=== PATIENT | male | born 1965 | race Caucasian/White ===

== ENCOUNTER 2021-12-11 19:46 | Observation (INO) | payer OTHER ==
--- NOTE | 2021-12-11 20:18 | XR ---
EXAMINATION TYPE: XR KUB DATE OF EXAM: 12/11/2021 COMPARISON: NONE HISTORY: Abdominal pain TECHNIQUE: Oral view FINDINGS: Upright view shows no evidence of intestinal obstruction or pneumoperitoneum. Fecal pattern is normal. Lung bases are clear. There are no pathologic calcifications over the kidneys. There is a mild lumbar levoscoliosis. IMPRESSION: Nonacute abdomen.
[2021-12-11 21:00] LABS: Appearance,Urine Clear (Clear); Bilirubin,Urine Negative (Negative); Blood,Urine Moderate (Negative); Color,Urine Yellow; Glucose,Urine (UA) Negative (Negative); Hyaline Casts,Urine 10 /lpf (0-2); Ketones,Urine Negative (Negative); Leukocyte Esterase,Urine Small (Negative); Mucus,Urine Rare /hpf; Nitrite,Urine Negative (Negative); PH, Urine 5.5 (5.0-8.0); Protein,Urine 1+ (Negative); RBC,Urine 32 /hpf (0-5); Specific Gravity,Urine 1.028 (1.001-1.035); Squamous Epithelial Cell,Urine <1 /hpf (0-4); Urobilinogen,Urine <2.0 mg/dL (<2.0); WBC,Urine 8 /hpf (0-5)
[2021-12-11] MEDS ORDERED: ONDANSETRON 4 MG/2 ML VIAL IVP STA (21:56)
[2021-12-11] MEDS ORDERED: MORPHINE SULFATE 4 MG/ML SYRINGE IV STA (21:56)
[2021-12-11] MEDS ORDERED: SODIUM CHLORIDE 0.9% 1,000 ML IV STA (21:56)
[2021-12-11 22:45] LABS: Basophils % (A) 0 %; Eosinophils # (A) 0.1 k/uL (0-0.7); Eosinophils % (A) 1 %; HCT 39.7 % (39.0-53.0); HGB 13.6 gm/dL (13.0-17.5); Lymphocytes # (A) 1.4 k/uL (1.0-4.8); Lymphocytes % (A) 11 %; MCHC 34.4 g/dL (31.0-37.0); MCV 95.8 fL (80.0-100.0); Mean Platelet Volume 7.3; Monocytes # (A) 0.3 k/uL (0-1.0); Monocytes % (A) 3 %; Neutrophils # (A) 10.9 k/uL (1.3-7.7); Neutrophils % (A) 84 %; Platelet Count 346 k/uL (150-450); RBC 4.14 m/uL (4.30-5.90); RDW 13.2 % (11.5-15.5)
--- NOTE | 2021-12-11 22:48 | ED ---
Abdominal Pain HPI - General Chief Complaint: Abdominal Pain Stated Complaint: Abdominal Pain Time Seen by Provider: 12/11/21 21:34 Source: patient, family, RN notes reviewed, old records reviewed Mode of arrival: ambulatory Limitations: no limitations - History of Present Illness Initial Comments: This is a 56-year-old male to the emergency department for evaluation. Patient presents today for evaluation regards to abdominal pain more suprapubic and pelvic pain. MD Complaint: abdominal pain -: hour(s) Location: periumbilical, epigastric, suprapubic Radiation: suprapubic Migration to: suprapubic Severity: moderate Severity scale (1-10): 4 Quality: cramping, aching Consistency: constant, intermittent Improves With: nothing Worsens With: nothing Associated Symptoms: nausea Treatments Prior to Arrival: other (none) - Related Data Allergies Allergy/AdvReac Type Severity Reaction Status Date / Time No Known Allergies Allergy Verified 12/11/21 19:56 Review of Systems ROS Statement: Those systems with pertinent positive or pertinent negative responses have been documented in the HPI. ROS Other: All systems not noted in ROS Statement are negative. Past Medical History Past Medical History: No Reported History Additional Past Medical History / Comment(s): Bipolar History of Any Multi-Drug Resistant Organisms: None Reported Past Surgical History: Orthopedic Surgery Past Psychological History: Bipolar Smoking Status: Former smoker Past Alcohol Use History: None Reported Past Drug Use History: None Reported General Exam Limitations: no limitations General appearance: alert, in no apparent distress Head exam: Present: atraumatic, normocephalic, normal inspection Eye exam: Present: normal appearance, PERRL, EOMI. Absent: scleral icterus, conjunctival injection, periorbital swelling ENT exam: Present: normal exam, mucous membranes moist Neck exam: Present: normal inspection. Absent: tenderness, meningismus, lymp hadenopathy Respiratory exam: Present: normal lung sounds bilaterally. Absent: respiratory distress, wheezes, rales, rhonchi, stridor Cardiovascular Exam: Present: regular rate, normal rhythm, normal heart sounds. Absent: systolic murmur, diastolic murmur, rubs, gallop, clicks GI/Abdominal exam: Present: soft, normal bowel sounds. Absent: distended, tenderness, guarding, rebound, rigid Extremities exam: Present: normal inspection, full ROM, normal capillary refill. Absent: tenderness, pedal edema, joint swelling, calf tenderness Back exam: Present: normal inspection Neurological exam: Present: alert, oriented X3, CN II-XII intact Psychiatric exam: Present: normal affect, normal mood Skin exam: Present: warm, dry, intact, normal color. Absent: rash Course Vital Signs 12/11/21 12/11/21 19:50 23:00 Temperature 98.4 F Pulse Rate 111 H 92 Respiratory 22 16 Rate Blood Pressure 123/71 124/68 O2 Sat by Pulse 93 L 94 L Oximetry - Reevaluation(s) Reevaluation #1: 12/11/21 23:25 Medical record is reviewed Reevaluation #2: 12/11/21 23:25 Symptoms are improved here in the ER Reevaluation #3: 12/12/21 02:04 Patient informed results and questions answered - Consultations Consultation #1: spoke with Dr. velasquez who agrees to admit this patient Medical Decision Making - Medical Decision Making 56 male to the emergency department for evaluation. Patient presents today for evaluation of acute abdominal pain. Positive computed tomography scan for acute appendicitis. Patient will be admitted for surgical evaluation and treatment - Lab Data Result diagrams: 12/11/21 22:26 12/11/21 22:26 Lab Results 12/11/21 12/11/21 12/11/21 Range/Units 20:01 22:26 22:26 WBC 13.0 H (3.8-10.6) k/uL RBC 4.14 L (4.30-5.90) m/uL Hgb 13.6 (13.0-17.5) gm/dL Hct 39.7 (39.0-53.0) % MCV 95.8 (80.0-100.0) fL MCH 33.0 (25.0-35.0) pg MCHC 34.4 (31.0-37.0) g/dL RDW 13.2 (11.5-15.5) % Plt Count 346 (150-450) k/uL MPV 7.3 Neutrophils % 84 % Lymphocytes % 11 % Monocytes % 3 % Eosinophils % 1 % Basophils % 0 % Neutrophils # 10.9 H (1.3-7.7) k/uL Lymphocytes # 1.4 (1.0-4.8) k/uL Monocytes # 0.3 (0-1.0) k/uL Eosinophils # 0.1 (0-0.7) k/uL Basophils # 0.0 (0-0.2) k/uL Sodium 131 L (137-145) mmol/L Potassium 4.5 (3.5-5.1) mmol/L Chloride 92 L (98-107) mmol/L Carbon Dioxide 28 (22-30) mmol/L Anion Gap 11 mmol/L BUN 17 (9-20) mg/dL Creatinine 0.96 (0.66-1.25) mg/dL Est GFR (CKD-EPI)AfAm >90 (>60 ml/min/1.73 sqM) Est GFR (CKD-EPI)NonAf 87 (>60 ml/min/1.73 sqM) Glucose 120 H (74-99) mg/dL Plasma Lactic Acid [place] (0.7-2.0) mmol/L Calcium 9.3 (8.4-10.2) mg/dL Total Bilirubin 1.0 (0.2-1.3) mg/dL AST 26 (17-59) U/L ALT 17 (4-49) U/L Alkaline Phosphatase 94 (38-126) U/L Total Protein 7.4 (6.3-8.2) g/dL Albumin 4.5 (3.5-5.0) g/dL Amylase 49 (30-110) U/L Lipase 32 (23-300) U/L Urine Color Yellow Urine Appearance Clear (Clear) Urine pH 5.5 (5.0-8.0) Ur Specific [place] 1.028 (1.001-1.035) Urine Protein 1+ H (Negative) Urine Glucose (UA) Negative (Negative) Urine Ketones Negative (Negative) Urine Blood Moderate H (Negative) Urine Nitrite Negative (Negative) Urine Bilirubin Negative (Negative) Urine Urobilinogen <2.0 (<2.0) mg/dL Ur Leukocyte Esterase Small H (Negative) Urine RBC 32 H (0-5) /hpf Urine WBC 8 H (0-5) /hpf Ur Squamous Epith Cells <1 (0-4) /hpf Hyaline Casts 10 H (0-2) /lpf Urine Mucus Rare H (None) /hpf 12/11/21 Range/Units 22:26 WBC (3.8-10.6) k/uL RBC (4.30-5.90) m/uL Hgb (13.0-17.5) gm/dL Hct (39.0-53.0) % MCV (80.0-100.0) fL MCH (25.0-35.0) pg MCHC (31.0-37.0) g/dL RDW (11.5-15.5) % Plt Count (150-450) k/uL MPV Neutrophils % % Lymphocytes % % Monocytes % % Eosinophils % % Basophils % % Neutrophils # (1.3-7.7) k/uL Lymphocytes # (1.0-4.8) k/uL Monocytes # (0-1.0) k/uL Eosinophils # (0-0.7) k/uL Basophils # (0-0.2) k/uL Sodium (137-145) mmol/L Potassium (3.5-5.1) mmol/L Chloride (98-107) mmol/L Carbon Dioxide (22-30) mmol/L Anion Gap mmol/L BUN (9-20) mg/dL Creatinine (0.66-1.25) mg/dL Est GFR (CKD-EPI)AfAm (>60 ml/min/1.73 sqM) Est GFR (CKD-EPI)NonAf (>60 ml/min/1.73 sqM) Glucose (74-99) mg/dL Plasma Lactic Acid [place] 1.5 (0.7-2.0) mmol/L Calcium (8.4-10.2) mg/dL Total Bilirubin (0.2-1.3) mg/dL AST (17-59) U/L ALT (4-49) U/L Alkaline Phosphatase (38-126) U/L Total Protein (6.3-8.2) g/dL Albumin (3.5-5.0) g/dL Amylase (30-110) U/L Lipase (23-300) U/L Urine Color Urine Appearance (Clear) Urine pH (5.0-8.0) Ur Specific [place] (1.001-1.035) Urine Protein (Negative) Urine Glucose (UA) (Negative) Urine Ketones (Negative) Urine Blood (Negative) Urine Nitrite (Negative) Urine Bilirubin (Negative) Urine Urobilinogen (<2.0) mg/dL Ur Leukocyte Esterase (Negative) Urine RBC (0-5) /hpf Urine WBC (0-5) /hpf Ur Squamous Epith Cells (0-4) /hpf Hyaline Casts (0-2) /lpf Urine Mucus (None) /hpf - Radiology Data Radiology results: report reviewed (CT of the abdomen and pelvis is positive for acute appendicitis), image reviewed Disposition Clinical Impression: Abdominal pain, Acute appendicitis Disposition: ADMITTED IP TO THIS [facility] Condition: Good Is patient prescribed a controlled substance at d/c from ED?: No Referrals: Jeffrey Ann MD [Primary Care Provider] - 1-2 days
[2021-12-11 22:57] LABS: ALT 17 U/L (4-49); AST 26 U/L (17-59); African American GFR (CKD) >90 (>60 ml/min/1.73 sqM); Albumin 4.5 g/dL (3.5-5.0); Alkaline Phosphatase 94 U/L (38-126); Amylase 49 U/L (30-110); Anion Gap 11 mmol/L; Blood Urea Nitrogen 17 mg/dL (9-20); Calcium 9.3 mg/dL (8.4-10.2); Carbon Dioxide 28 mmol/L (22-30); Chloride 92 mmol/L (98-107); Glucose 120 mg/dL (74-99); Lipase 32 U/L (23-300); Non-African American GFR(CKD) 87 (>60 ml/min/1.73 sqM); Potassium 4.5 mmol/L (3.5-5.1); Sodium 131 mmol/L (137-145); Total Protein 7.4 g/dL (6.3-8.2)
--- NOTE | 2021-12-12 01:11 | CT ---
EXAMINATION TYPE: CT abdomen pelvis w con DATE OF EXAM: 12/11/2021 COMPARISON: None HISTORY: Abd Pain CT DLP: 621.6 mGycm Automated exposure control for dose reduction was used. CONTRAST: Performed with IV Contrast, patient injected with 100 mL of Isovue 300. Images obtained from the diaphragm to the floor the pelvis with IV contrast. FINDINGS: Lung bases are clear. There is no pleural effusion. Heart size is normal. There is no pericardial eff usion. Liver spleen stomach pancreas appear intact. Bile ducts are not dilated. Gallbladder is borderline d ilated and measures 4.9 cm. There is no gallbladder wall thickening. No pericholecystic fluid. There is no adrenal mass. Kidneys show satisfactory contrast opacification. There is no hydronephrosi s. Ureters are not dilated. There is no retroperitoneal adenopathy. Abdominal aorta is atheromatous. Bladder distends smoothly. There is no inguinal hernia. No free fluid in the pelvis. There are some m ild fat stranding in the mesentery of the lower abdomen. There is blind ending tubular structure in t he right lower quadrant that appears to be dilated appendix and measures 1.5 cm in diameter. The tip is near the sacral promontory. This appears to account for the fat stranding in the lower abdomen. Th ere is some mild distention of the right colon with fluid. The lumbar vertebrae have normal alignment. There is moderate narrowing at L3-4 disc with sclerosis a nd vacuum disc. No compression fracture. Bony pelvis is intact. IMPRESSION: Dilated appendix with fat stranding related to acute appendicitis. No free fluid seen to suggest rupt ure. Large gallbladder is suspicious for gallbladder dysfunction..
[2021-12-12] MEDS ORDERED: SODIUM CHLORIDE 0.9% 1,000 ML IV SCH (02:00)
[2021-12-12] MEDS ORDERED: LORazepam 2 MG/ML INJ IV PRN (02:00)
[2021-12-12] MEDS ORDERED: ACETAMINOPHEN TAB 325 MG TAB PO PRN (02:00)
[2021-12-12] MEDS ORDERED: ONDANSETRON 4 MG/2 ML VIAL IVP PRN (02:00)
[2021-12-12] MEDS ORDERED: NALOXONE 0.4 MG/ML 1 ML VIAL IV PRN ×2 (02:00→07:02)
[2021-12-12] MEDS ORDERED: AMPICILLIN-SULBACTAM 3 GM in SODIUM CHLORIDE 0.9% 100 ML IVPB STA (02:00)
[2021-12-12] MEDS ORDERED: BUPIVACAIN-EPI 0.25%-1:200,000 30 ML VIAL SQ ONE ×2 (06:05→06:28)
[2021-12-12] MEDS ORDERED: ONDANSETRON 4 MG/2 ML VIAL ONE (06:11)
[2021-12-12] MEDS ORDERED: KETOROLAC 15 MG/ML 1 ML VIAL ONE (06:11)
[2021-12-12] MEDS ORDERED: HEPARIN SODIUM,PORCINE 5,000 UNIT/ML 1 ML VIAL ONE (06:11)
[2021-12-12] MEDS ORDERED: MIDAZOLAM 2 MG/2 ML VIAL ONE (06:11)
[2021-12-12] MEDS ORDERED: NEOSTIGMINE 1 MG/ML 10 ML VIAL ONE (06:11)
[2021-12-12] MEDS ORDERED: ROCURONIUM 10 MG/ML (5 ML VIAL) IV ONE (06:11)
[2021-12-12] MEDS ORDERED: LACTATED RINGERS 1,000 ML IV ONE ×3 (06:11→07:42)
[2021-12-12] MEDS ORDERED: SODIUM CHLORIDE 0.9% 50 ML with ceFAZolin 1,000 MG IV ONE ×2 (06:11)
[2021-12-12] MEDS ORDERED: PHENYLEPHRINE-0.9% NACL SYG 1,000 MCG/10 ML SYRINGE ONE (06:11)
[2021-12-12] MEDS ORDERED: HYDROmorphone (PF) 1 MG/ML ONE (06:11)
[2021-12-12] MEDS ORDERED: PROPOFOL 10 MG/ML 20 ML VIAL IV ONE (06:11)
[2021-12-12] MEDS ORDERED: SUCCINYLCHOLINE CHLORIDE 100 MG/5 ML SYR IV ONE (06:11)
[2021-12-12] MEDS ORDERED: GLYCOPYRROLATE 0.2 MG/ML 2 ML VIAL ONE (06:11)
[2021-12-12] MEDS ORDERED: fentaNYL (PF) 50 MCG/ML 2 ML AMP ONE (06:11)
[2021-12-12] MEDS ORDERED: LIDOCAINE 1% INJ 10MG/ML (20 ML MDV) ONE (06:11)
--- NOTE | 2021-12-12 06:14 | P.GSHP ---
History of Present Illness H&P Date: 12/12/21 This a 56-year-old male been experiencing a day and a half of abdominal pain that started periumbilical moved down to the right lower quadrant. He admits to some nausea and denies any emesis. He denies her having pain like this before in the past. He has no abdominal surgical history. He has no other significant medical history. He did have a surgery on his left leg. No other complaints at this time. CT was consistent with acute appendicitis. Past Medical History Past Medical History: No Reported History Additional Past Medical History / Comment(s): Bipolar History of Any Multi-Drug Resistant Organisms: None Reported Past Surgical History: Orthopedic Surgery Past Psychological History: Bipolar Smoking Status: Former smoker Past Alcohol Use History: None Reported Past Drug Use History: None Reported Medications and Allergies Allergies Allergy/AdvReac Type Severity Reaction Status Date / Time No Known Allergies Allergy Verified 12/11/21 19:56 Surgical - Exam Osteopathic Statement: *. No significant issues noted on an osteopathic structural exam other than those noted in the History and Physical/Consult. Vital Signs Temp Pulse Resp BP Pulse Ox 98.4 F 111 H 22 123/71 93 L 12/11/21 19:50 12/11/21 19:50 12/11/21 19:50 12/11/21 19:50 12/11/21 19:50 - General well developed, well nourished, no distress - Eyes PERRL - Neck trachea midline - Respiratory normal expansion, normal respiratory effort - Cardiovascular Rhythm: regular - Abdomen Mild tenderness palpation the right lower quadrant no rebound no rigidity no guarding Abdomen: soft - Neurologic normal coordination, normal sensation - Psychiatric oriented to time, oriented to person, oriented to place Results - Labs 12/11/21 22:26 12/11/21 22:26 Abnormal Lab Results - Last 24 Hours (Table) 12/11/21 12/11/21 12/11/21 Range/Units 20:01 22:26 22:26 WBC 13.0 H (3.8-10.6) k/uL RBC 4.14 L (4.30-5.90) m/uL Neutrophils # 10.9 H (1.3-7.7) k/uL Sodium 131 L (137-145) mmol/L Chloride 92 L (98-107) mmol/L Glucose 120 H (74-99) mg/dL Urine Protein 1+ H (Negative) Urine Blood Moderate H (Negative) Ur Leukocyte Esterase Small H (Negative) Urine RBC 32 H (0-5) /hpf Urine WBC 8 H (0-5) /hpf Hyaline Casts 10 H (0-2) /lpf Urine Mucus Rare H (None) /hpf Diabetes panel 12/11/21 Range/Units 22:26 Sodium 131 L (137-145) mmol/L Potassium 4.5 (3.5-5.1) mmol/L Chloride 92 L (98-107) mmol/L Carbon Dioxide 28 (22-30) mmol/L BUN 17 (9-20) mg/dL Creatinine 0.96 (0.66-1.25) mg/dL Glucose 120 H (74-99) mg/dL Calcium 9.3 (8.4-10.2) mg/dL AST 26 (17-59) U/L ALT 17 (4-49) U/L Alkaline Phosphatase 94 (38-126) U/L Total Protein 7.4 (6.3-8.2) g/dL Albumin 4.5 (3.5-5.0) g/dL Calcium panel 12/11/21 Range/Units 22:26 Calcium 9.3 (8.4-10.2) mg/dL Albumin 4.5 (3.5-5.0) g/dL Pituitary panel 12/11/21 Range/Units 22:26 Sodium 131 L (137-145) mmol/L Potassium 4.5 (3.5-5.1) mmol/L Chloride 92 L (98-107) mmol/L Carbon Dioxide 28 (22-30) mmol/L BUN 17 (9-20) mg/dL Creatinine 0.96 (0.66-1.25) mg/dL Glucose 120 H (74-99) mg/dL Calcium 9.3 (8.4-10.2) mg/dL Adrenal panel 12/11/21 Range/Units 22:26 Sodium 131 L (137-145) mmol/L Potassium 4.5 (3.5-5.1) mmol/L Chloride 92 L (98-107) mmol/L Carbon Dioxide 28 (22-30) mmol/L BUN 17 (9-20) mg/dL Creatinine 0.96 (0.66-1.25) mg/dL Glucose 120 H (74-99) mg/dL Calcium 9.3 (8.4-10.2) mg/dL Total Bilirubin 1.0 (0.2-1.3) mg/dL AST 26 (17-59) U/L ALT 17 (4-49) U/L Alkaline Phosphatase 94 (38-126) U/L Total Protein 7.4 (6.3-8.2) g/dL Albumin 4.5 (3.5-5.0) g/dL Assessment and Plan Assessment: Acute appendicitis Plan: I discussed with patient laparoscopic appendectomy risks benefits and alternatives including risks of bleeding infection damage shunting tissue need for further operation were all discussed the patient he stated he understood agreed and consented. He'll be kept nothing by mouth given IV antibiotics IV fluids and prepped for surgery.
--- NOTE | 2021-12-12 06:59 | P.OP ---
Date of Procedure: 12/12/21 Preoperative Diagnosis: Acute appendicitis Postoperative Diagnosis: Same Procedure(s) Performed: Laparoscopic appendectomy Anesthesia: PRITESH Surgeon: Sravan Rodriguez Estimated Blood Loss (ml): 5 Disposition: observation Description of Procedure: Patient is brought operative suite remained in the supine position underwent general endotracheal anesthesia per Department of anesthesia prepped and draped usual sterile fashion timeout performed correct patient correct procedure correct site was verified. Local anesthetic was used to anesthetize skin subcutaneous tissues at [place] in the left upper quadrant. Using a 5 mm Visiport the abdomen was entered under direct visualization and insufflated. A 12 mm port was placed in the left midabdomen and a 5 mm port was placed suprapubic. The patient was placed in Trendelenburg with right side up and the appendix was identified at the base the cecum it was noted to be acutely inflamed and suppurative. A window was made at the appendiceal base at the base of the cecum and the appendix was stapled across at the base of the cecum with a 45 mm purple load Endo SHABBIR stapler. The mesial appendix and was taken down with a LigaSure device being sure to ensure hemostasis as the appendix was broken free of its adhesions and its entirety including the tip were released from the mesial appendix. This appendix was then placed in an Endo Catch bag and removed through the 12 mm port site. Suction ceramic tile setter was used to irrigate and clean the area and hemostasis was once again noted. The 12 mm port site fascia was closed with a Jair-Taran with a 0 Vicryl stitch. All ports removed under direct visualization hemostasis was noted the port sites were closed with 4-0 Vicryl subcuticular stitches and skin glue patient tolerated the procedure well there are no apparent complications
[2021-12-12] MEDS ORDERED: HYDROmorphone 0.5 MG/0.5 ML SYRINGE IVP ONE ×2 (07:39→07:49)
[2021-12-12] MEDS ORDERED: hydrALAZINE HCL 20 MG/ML 1 ML VIAL IVP ONE (07:59)
[2021-12-12] MEDS: HYDROcodone/APAP 5-325MG 1 EACH TAB PO PRN ×3 (08:59→18:03)
[2021-12-12] MEDS: PANTOPRAZOLE 40 MG/10 ML VIAL IV SCH (11:00)
[2021-12-12] MEDS: MORPHINE SULFATE 4 MG/ML SYRINGE IV PRN ×2 (11:07→20:02)
[2021-12-12] MEDS: AMPICILLIN-SULBACTAM 3 GM in SODIUM CHLORIDE 0.9% 100 ML IVPB SCH ×2 (12:13→20:04)
[2021-12-12] MEDS: LACTATED RINGERS 1,000 ML IV SCH ×2 (13:37→20:05)
[2021-12-13] MEDS: HYDROcodone/APAP 5-325MG 1 EACH TAB PO PRN ×3 (01:30→15:54)
[2021-12-13] MEDS: AMPICILLIN-SULBACTAM 3 GM in SODIUM CHLORIDE 0.9% 100 ML IVPB SCH ×2 (02:55→10:20)
[2021-12-13] MEDS: MORPHINE SULFATE 4 MG/ML SYRINGE IV PRN ×2 (04:45→10:20)
[2021-12-13] MEDS: PANTOPRAZOLE 40 MG/10 ML VIAL IV SCH (08:03)
[2021-12-13 10:12] LABS: Basophils # (A) 0.04 X 10*3/uL (0.00-0.10); Basophils % (A) 0.5 %; Eosinophils % (A) 2.5 %; HCT 30.6 % (39.6-50.0); HGB 10.1 g/dL (13.0-17.0); Immature Grans, Automated 0.4 %; Lymphocytes # (A) 1.61 X 10*3/uL (0.90-5.00); Lymphocytes % (A) 20.1 %; MCH 31.6 pg (27.0-32.0); MCV 95.6 fL (80.0-97.0); Mean Platelet Volume 10.3 fL (9.5-12.2); Monocytes % (A) 7.5 %; NRBC Per 100 WBC 0 /100 WBCS (0.0-0.0); Neutrophils # (A) 5.53 X 10*3/uL (1.80-7.70); Platelet Count 278 X 10*3/uL (140-440); RDW 13.3 % (11.5-14.5); WBC 8.01 X 10*3/uL (4.50-10.00)
[2021-12-13] MEDS: LACTATED RINGERS 1,000 ML IV SCH (10:21)
[2021-12-13 10:28] LABS: African American GFR (CKD) 114.1 (60.0-200.0); Albumin 3.6 g/dL (3.8-4.9); Albumin/Globulin Ratio 1.71 (1.60-3.17); Anion Gap 9.6 mmol/L (10.00-18.00); BUN/Creat Ratio 12.13 Ratio (12.00-20.00); Blood Urea Nitrogen 9.7 mg/dL (9.0-27.0); Calcium 8.7 mg/dL (8.7-10.3); Carbon Dioxide 24.4 mmol/L (20.0-27.5); Globulin 2.1 g/dL (1.6-3.3); Non-African American GFR(CKD) 98.5 (60.0-200.0); Potassium 3.9 mmol/L (3.5-5.5); Total Bilirubin 0.5 mg/dL (0.30-1.20); Total Protein 5.7 g/dL (6.2-8.2)
[2021-12-13 15:46] VITALS: BP 128/87; PULSE 86; RESP 19; TEMP 98.2
== END 2021-12-13 18:14 | disposition home or self-care (01) ==
LOC: EC 19:46 → 4SSUR 12-12 02:00
PROVIDERS: ADMIT Student in an Organized Health Care Education/Training Program; ATTEND Student in an Organized Health Care Education/Training Program
DX: K35.80 Unspecified acute appendicitis (principal); F31.9 Bipolar disorder, unspecified; Z79.899 Other long term (current) drug therapy; Z87.891 Personal history of nicotine dependence
CPT/HCPCS: 44970; 96361; 96374; 96375; 99285; 36415; 88304; 80053 ×2; 82150; 83605; 83690; 85025 ×2; 81001; 74018; 74177; G0378 ×2; J2250; J2270 ×3; J0360; J1644; J2710; J2405 ×2; J0690; J2001; J3010; J1170 ×2; J0295 ×2; J1885; J2370; J0330; J2704; C9113 ×2; Q9967

== ENCOUNTER → 2023-03-27 | Outpatient (CLI) | payer OTHER ==
--- NOTE | 2023-03-27 14:53 | XR ---
EXAM TYPE: LUMBAR SPINE X RAY SERIES COMPARISON: NONE HISTORY: Pain TECHNIQUE: 4 views are submitted. FINDINGS: Alignment is anatomic. The pedicles are intact. The transverse processes are intact. There is no s pondylolysis or spondylolisthesis. There is severe degenerative disc disease at all 3-4. Severe face t arthropathy is seen as well as L2-S1. Grade 1 anterolisthesis of L2 relative to L3 and L5 relative to S1 which appears degenerative. Diffuse osteopenia. IMPRESSION: 1. Multilevel degenerative disc disease most severe changes L3-L4. Multilevel severe facet arthropath y with grade 1 anterolisthesis of L5 on S1. Suspect foraminal encroachment..
== END | disposition home or self-care (01) ==
LOC: RADXRMAIN 14:18
PROVIDERS: ATTEND Family Medicine
DX: M51.36 Other intervertebral disc degeneration, lumbar region (principal); M47.816 Spondylosis without myelopathy or radiculopathy, lumbar region; M43.17 Spondylolisthesis, lumbosacral region
CPT/HCPCS: 72110